=== PATIENT | male | born 1940 | race African-American/Black ===

== ENCOUNTER 2017-06-04 12:57 | Observation (INO) ==
[2017-06-04] MEDS ORDERED: SODIUM CHLORIDE 0.9% 500 ML IV STA (15:24)
[2017-06-04] MEDS ORDERED: ENOXAPARIN 100 MG/ML SYRINGE SUBCUT STA (15:24)
[2017-06-04] MEDS ORDERED: ENOXAPARIN 100 MG/ML SYRINGE SUBCUT ONE (15:33)
[2017-06-04 15:46] LABS: Basophils % 0.4 % (0.0-0.8); Eosinophils # 0.1 10*3/uL (0.0-0.87); Eosinophils % 1.7 % (0.00-10.9); Hematocrit 41.4 VOL% (42.0-52.0); Hemoglobin 13.7 GM/DL (14.0-18.0); Immature Granulocytes % 0.4 %; Immature Granulocytes Absolute 0.02 #; Lymphocytes # 1.4 10*3/uL (1.4-4.0); Lymphocytes % 28.8 % (21.2-54.2); Mean Corpuscular HGB Conc 33.1 GM/DL (32-36); Mean Corpuscular Hemoglobin 28 PG (27-34); Mean Corpuscular Volume 83.3 FL (87-102); Mean Platelet Volume 10.1 FL (9.6-12.0); Monocytes # 0.4 10*3/uL (0.11-0.8); Monocytes % 9.1 % (1.7-12.7); Neutrophils # 2.8 10*3/uL (1.4-7.4); Neutrophils % 59.6 % (38.7-73.9); Platelet Count 129 T/CUMM (130-400); Red Blood Count 4.97 MC/CUMM (3.8-5.5); Red Cell Distribution Width 13.5 % (9.3-17.3); White Blood Count 4.7 T/CUMM (4-12)
[2017-06-04 15:56] LABS: INR 0.9
[2017-06-04 16:13] LABS: Albumin 3.8 G/DL (3.4-5.0); Bilirubin,Total 0.4 MG/DL (0.2-1.0); Calcium 9.9 MG/DL (8.5-10.1); Osmolality,Calculated 289.1 MOS/KG (273-304); Potassium 3.9 MMOL/L (3.5-5.1); Total Protein 7.3 G/DL (6.4-8.3)
[2017-06-04] MEDS ORDERED: ONDANSETRON 4 MG/2 ML VIAL IV PRN (18:02)
[2017-06-04] MEDS ORDERED: DEXTROSE 50% 25 GM/50 ML VIAL IV PRN (18:02)
[2017-06-04] MEDS ORDERED: GLUCAGON 1 MG VIAL IM PRN (18:02)
[2017-06-04] MEDS ORDERED: DOCUSATE SODIUM 100 MG CAPSULE PO PRN (18:02)
[2017-06-04] MEDS: APIXABAN 5 MG TABLET PO SCH (20:39)
[2017-06-04] MEDS: INSULIN LISPRO 100 UNIT/ML SUBCUT SCH (20:40)
[2017-06-04] MEDS ORDERED: APIXABAN 5 MG TABLET PO SCH (21:00)
[2017-06-05 07:06] LABS: Basophils % 0.7 % (0.0-0.8); Eosinophils # 0.1 10*3/uL (0.0-0.87); Eosinophils % 2.9 % (0.00-10.9); Hematocrit 39.2 VOL% (42.0-52.0); Hemoglobin 12.9 GM/DL (14.0-18.0); Immature Granulocytes % 0.5 %; Immature Granulocytes Absolute 0.02 #; Lymphocytes # 1.5 10*3/uL (1.4-4.0); Lymphocytes % 36.2 % (21.2-54.2); Mean Corpuscular HGB Conc 32.9 GM/DL (32-36); Mean Corpuscular Hemoglobin 27 PG (27-34); Mean Corpuscular Volume 83.4 FL (87-102); Mean Platelet Volume 10.9 FL (9.6-12.0); Monocytes # 0.4 10*3/uL (0.11-0.8); Monocytes % 10.2 % (1.7-12.7); Neutrophils % 49.5 % (38.7-73.9); Platelet Count 144 T/CUMM (130-400); Red Cell Distribution Width 13.5 % (9.3-17.3); White Blood Count 4.1 T/CUMM (4-12)
[2017-06-05 07:49] LABS: Calcium 9.4 MG/DL (8.5-10.1); Osmolality,Calculated 288.7 MOS/KG (273-304); Potassium 3.7 MMOL/L (3.5-5.1); Thyroid Stimulating Hormone 2.1 uIU/ml (0.358-3.74)
[2017-06-05 07:57] VITALS: BP 145/94
[2017-06-05] MEDS: APIXABAN 5 MG TABLET PO SCH (08:28)
[2017-06-05] MEDS ORDERED: PANTOPRAZOLE 40 MG TABLET PO SCH (09:00)
[2017-06-05] MEDS: INSULIN LISPRO 100 UNIT/ML SUBCUT SCH (09:06)
== END 2017-06-05 11:08 | disposition home or self-care (01) ==
LOC: N.5E 12:57 → N.ED 12:57 → SUATTDRO 18:02 → N.5E 19:40
PROVIDERS: ADMIT Hospitalist; ATTEND Family Medicine

== ENCOUNTER 2021-07-29 16:54 | Observation (INO) ==
[2021-07-29 17:45] LABS: Basophils % 0.3 % (0.0-0.8); Eosinophils # 0.1 10*3/uL (0.0-0.87); Eosinophils % 1.5 % (0.00-10.9); Hematocrit 47.1 VOL% (42.0-52.0); Hemoglobin 14.6 GM/DL (14.0-18.0); Immature Granulocytes % 0.3 %; Immature Granulocytes Absolute 0.02 #; Lymphocytes % 17.9 % (21.2-54.2); Mean Corpuscular Volume 83.8 FL (87-102); Mean Platelet Volume 10.4 FL (9.6-12.0); Monocytes % 8.3 % (1.7-12.7); Neutrophils % 71.7 % (38.7-73.9); Platelet Count 178 T/CUMM (130-400); Red Blood Count 5.62 MC/CUMM (3.8-5.5); White Blood Count 5.8 T/CUMM (4-12)
[2021-07-29 18:12] LABS: Albumin 3.6 G/DL (3.4-5.0); Bilirubin,Total 0.4 MG/DL (0.20-1.00); Calcium 9.6 MG/DL (8.5-10.1); Osmolality,Calculated 283.2 MOS/KG (273-304); Potassium 4.5 MMOL/L (3.5-5.1); Total Protein 8.6 G/DL (6.4-8.2)
[2021-07-29] MEDS ORDERED: methylPREDNISolone SOD SUC 125 MG/2 ML VIAL IV STA (18:26)
[2021-07-29] MEDS ORDERED: NITROGLYCERIN 2% OINT 1 INCH/GM PACK TOP STA (18:26)
[2021-07-29] MEDS ORDERED: ALBUTEROL/IPRATROPIUM 3 ML NEB RESP TX STA (18:26)
[2021-07-29] MEDS ORDERED: FUROSEMIDE 100 MG/10 ML VIAL IV STA (18:26)
[2021-07-29] MEDS ORDERED: cefTRIAXone 1,000 MG in SODIUM CHLORIDE 0.9% 100 ML IV STA (18:26)
[2021-07-29] MEDS ORDERED: ONDANSETRON 4 MG/2 ML VIAL IV STA (18:26)
[2021-07-29] MEDS ORDERED: MORPHINE 2 MG/1 ML SYRINGE IV STA (18:26)
[2021-07-29 19:18] LABS: INR 1.3
[2021-07-29 20:01] LABS: Bilirubin,Urine Negative (Negative); Blood, Urine Negative (Negative); Calcium Oxalate Crystals,Urine Occasional /HPF (Few); Glucose,Urine (UA) >=500 mg/dL (Negative); Ketones,Urine Negative (Negative); Mucus,Urine Occasional /LPF (Occasional); Nitrite,Urine Negative (Negative); Protein,Urine 30 MG/DL; RBC,Urine <1 /HPF (0-4); Squamous Epithelial Cell,Urine Occasional /HPF (0-10); Urine Appearance CLEAR (Clear); Urine Color Straw (Yellow); Urine Specific Gravity 1.017 (1.001-1.035); Urine Urobilinogen < 2.0 EU/DL (0.2-1.0)
[2021-07-30] MEDS ORDERED: ALBUTEROL 2.5 MG/3 ML NEB RESP TX PRN (00:29)
[2021-07-30] MEDS ORDERED: DEXTROSE 50% 25 GM/50 ML SYRINGE IV PRN (00:29)
[2021-07-30] MEDS ORDERED: GABAPENTIN 100 MG CAPSULE PO PRN (00:29)
[2021-07-30] MEDS ORDERED: GLUCAGON 1 MG VIAL IM PRN (00:29)
[2021-07-30] MEDS ORDERED: ACETAMINOPHEN 325 MG TABLET PO PRN (00:29)
[2021-07-30] MEDS ORDERED: ONDANSETRON 4 MG/2 ML VIAL IV PRN (00:29)
[2021-07-30] MEDS: ALBUTEROL/IPRATROPIUM 3 ML NEB RESP TX SCH ×6 (00:43→19:43)
[2021-07-30] MEDS: INSULIN REGULAR 100 UNIT/ML SUBCUT SCH ×5 (01:16→21:36)
[2021-07-30] MEDS: DOCUSATE SODIUM 100 MG CAPSULE PO SCH ×3 (01:16→21:37)
[2021-07-30] MEDS: INSULIN GLARGINE 100 UNIT/ML SUBCUT SCH ×2 (01:16→21:36)
[2021-07-30] MEDS: APIXABAN 5 MG TABLET PO SCH ×3 (01:16→21:37)
[2021-07-30] MEDS: SODIUM CHLORIDE 0.9% 1,000 ML IV SCH (01:17)
[2021-07-30 05:10] LABS: Basophils % 0.1 % (0.0-0.8); Hematocrit 47.2 VOL% (42.0-52.0); Hemoglobin 14.7 GM/DL (14.0-18.0); Immature Granulocytes % 0.4 %; Immature Granulocytes Absolute 0.03 #; Lymphocytes # 0.7 10*3/uL (1.4-4.0); Mean Corpuscular HGB Conc 31.1 GM/DL (32-36); Mean Corpuscular Volume 83.7 FL (87-102); Mean Platelet Volume 10.9 FL (9.6-12.0); Monocytes % 1.2 % (1.7-12.7); Neutrophils % 88.3 % (38.7-73.9); Platelet Count 178 T/CUMM (130-400); Red Blood Count 5.64 MC/CUMM (3.8-5.5); Red Cell Distribution Width 14.8 % (9.3-17.3); White Blood Count 6.9 T/CUMM (4-12)
[2021-07-30 05:34] LABS: Albumin 3.3 G/DL (3.4-5.0); Bilirubin,Total 1.3 MG/DL (0.20-1.00); Calcium 9.4 MG/DL (8.5-10.1); Osmolality,Calculated 293.4 MOS/KG (273-304); Potassium 4.6 MMOL/L (3.5-5.1); Risk Ratio 2.55; Total Protein 8.2 G/DL (6.4-8.2); VLDL Cholesterol 5.2 MG/DL
[2021-07-30 05:40] LABS: Lymphocytes 10 % (20-55); Platelet Estimate Adequate; Segmented Neutrophils 89 % (50-85); Total Cells Counted 100
[2021-07-30 05:41] LABS: Hypochromasia Slight; Microcytosis Slight
[2021-07-30] MEDS: GLIMEPIRIDE 4 MG TABLET PO SCH (08:46)
[2021-07-30] MEDS: ASPIRIN EC 81 MG TABLET PO SCH (08:47)
[2021-07-30] MEDS: POTASSIUM CHLORIDE 20 MEQ TABLET PO SCH (08:47)
[2021-07-30] MEDS: amLODIPine 10 MG TABLET PO SCH (08:47)
[2021-07-30] MEDS: ASCORBIC ACID 500 MG TABLET PO SCH ×2 (08:48→21:36)
[2021-07-30] MEDS: LOSARTAN 50 MG TABLET PO SCH (08:49)
[2021-07-30] MEDS: METOPROLOL SUCCINATE XL 25 MG TABLET PO SCH (08:49)
[2021-07-30] MEDS: CLINDAMYCIN 300 MG CAPSULE PO SCH ×2 (08:49→21:36)
[2021-07-30] MEDS: LEVOTHYROXINE 100 MCG TABLET PO SCH (08:49)
[2021-07-30] MEDS: PANTOPRAZOLE 40 MG TABLET PO SCH (08:50)
[2021-07-30] MEDS: methylPREDNISolone SOD SUC 40 MG/1 ML VIAL IV SCH ×2 (08:50→21:35)
[2021-07-30] MEDS ORDERED: PANTOPRAZOLE 40 MG TABLET PO SCH (09:00)
[2021-07-30] MEDS: MORPHINE 2 MG/1 ML SYRINGE IV PRN (12:31)
[2021-07-30] MEDS ORDERED: cefTRIAXone 1,000 MG in SODIUM CHLORIDE 0.9% 100 ML IV SCH (18:00)
[2021-07-30] MEDS ORDERED: BENZONATATE 100 MG CAPSULE PO PRN (20:28)
[2021-07-30] MEDS ORDERED: PHENOL 1.4% THROAT SPRAY 177 ML BOTTLE PO PRN (20:28)
[2021-07-30] MEDS ORDERED: BIMATOPROST 0.01% OPH SOLN 2.5 ML BOTTLE BOTH EYES SCH (21:00)
[2021-07-31 05:22] LABS: Hematocrit 42.6 VOL% (42.0-52.0); Hemoglobin 13.1 GM/DL (14.0-18.0); Immature Granulocytes % 0.6 %; Immature Granulocytes Absolute 0.07 #; Lymphocytes # 0.7 10*3/uL (1.4-4.0); Lymphocytes % 5.8 % (21.2-54.2); Mean Corpuscular HGB Conc 30.8 GM/DL (32-36); Mean Corpuscular Volume 83.5 FL (87-102); Monocytes % 4.8 % (1.7-12.7); Neutrophils % 88.8 % (38.7-73.9); Platelet Count 176 T/CUMM (130-400); Red Cell Distribution Width 15.3 % (9.3-17.3); White Blood Count 12.1 T/CUMM (4-12)
[2021-07-31 06:08] LABS: Albumin 3.1 G/DL (3.4-5.0); Bilirubin,Total 1.5 MG/DL (0.20-1.00); Calcium 9.1 MG/DL (8.5-10.1); Potassium 4.7 MMOL/L (3.5-5.1); Total Protein 7.6 G/DL (6.4-8.2)
[2021-07-31] MEDS: ALBUTEROL/IPRATROPIUM 3 ML NEB RESP TX SCH ×3 (07:00→07:22)
[2021-07-31] MEDS: SODIUM CHLORIDE 0.9% 1,000 ML IV SCH (07:28)
[2021-07-31] MEDS: INSULIN REGULAR 100 UNIT/ML SUBCUT SCH ×2 (08:26→11:53)
[2021-07-31] MEDS: DOCUSATE SODIUM 100 MG CAPSULE PO SCH (08:27)
[2021-07-31] MEDS: POTASSIUM CHLORIDE 20 MEQ TABLET PO SCH (08:27)
[2021-07-31] MEDS: amLODIPine 10 MG TABLET PO SCH (08:27)
[2021-07-31] MEDS: methylPREDNISolone SOD SUC 40 MG/1 ML VIAL IV SCH (08:27)
[2021-07-31] MEDS: APIXABAN 5 MG TABLET PO SCH (08:27)
[2021-07-31] MEDS: LOSARTAN 50 MG TABLET PO SCH (08:27)
[2021-07-31] MEDS: CLINDAMYCIN 300 MG CAPSULE PO SCH (08:27)
[2021-07-31] MEDS: PANTOPRAZOLE 40 MG TABLET PO SCH (08:27)
[2021-07-31] MEDS: ASCORBIC ACID 500 MG TABLET PO SCH (08:27)
[2021-07-31] MEDS: GLIMEPIRIDE 4 MG TABLET PO SCH (08:28)
[2021-07-31] MEDS: ASPIRIN EC 81 MG TABLET PO SCH (08:28)
[2021-07-31] MEDS: LEVOTHYROXINE 100 MCG TABLET PO SCH (08:28)
[2021-07-31] MEDS: METOPROLOL SUCCINATE XL 25 MG TABLET PO SCH (08:28)
[2021-07-31] MEDS: MORPHINE 2 MG/1 ML SYRINGE IV PRN (08:48)
[2021-07-31 12:30] VITALS: BP 122/77
== END 2021-07-31 13:05 | disposition home health service (06) ==
LOC: EDUNIT# → EDBD → N.ED 16:54 → N.EDINP 16:54 → N.TELES 07-30 00:05
PROVIDERS: ADMIT Family Medicine; ATTEND Family Medicine